=== PATIENT | female | born 1935 | race Caucasian/White ===

== ENCOUNTER 2020-12-18 19:26 | Inpatient (IN) ==
[2020-12-18 20:57] LABS: INR 1.37 (0.86-1.15)
[2020-12-18 20:59] LABS: ALT 21 U/L (7-52); AST 24 U/L (13-39); Albumin 3.8 g/dL (3.2-5.2); Albumin/Globulin Ratio 1.1 (1-3); Alkaline Phosphatase 75 U/L (35-149); Anion Gap 6 mmol/L (2-11); Blood Urea Nitrogen 17 mg/dL (6-24); CO2 Carbon Dioxide 25 mmol/L (22-32); Calcium 9.6 mg/dL (8.6-10.3); Chloride 98 mmol/L (101-111); EGFR African American 101.5 (>60); EGFR Non-African American 83.9 (>60); Globulin 3.6 g/dL (2-4); Glucose 101 mg/dL (70-100); Potassium 3.9 mmol/L (3.5-5.0); Sodium 129 mmol/L (135-145); Total Protein 7.4 g/dL (6.4-8.9)
[2020-12-18 21:03] LABS: Troponin I 0.16 ng/mL (<0.03)
[2020-12-18 21:12] LABS: Hematocrit 37 % (35-47); Hemoglobin 12.3 g/dL (12.0-16.0); Mean Corpuscular HGB Conc 33 g/dL (31-36); Mean Corpuscular Hemoglobin 30 pg (27-31); Mean Corpuscular Volume 91 fL (80-97); Red Blood Count 4.05 10^6 /uL (3.70-4.87); Red Cell Distribution Width 13 % (10-15); White Blood Count 10.9 10^3/uL (3.5-10.8)
[2020-12-18] MEDS ORDERED: Diltiazem IV push/loading dose 5 MG/ML 5 ML vial (25 mg) IV SLOW PU ONE ×2 (21:39→23:08)
[2020-12-18 21:53] LABS: ABS Basophils 0.1 10^3/ul (0-0.2); ABS Eosinophils 0.2 10^3/ul (0-0.6); ABS Lymphocytes 0.6 10^3/ul (1.0-4.8); ABS Monocytes 1.1 10^3/ul (0-0.8); ABS Neutrophils 8.9 10^3/ul (1.5-7.7); Eosinophil % 1.9 %; Lymphocyte % 5.3 %; Mean Platelet Volume 9.1 fL (7.4-10.4); Nucleated Red Blood Cells % 0.1; Platelet Count 344 10^3/uL (150-450)
[2020-12-18 22:03] LABS: Urine Appearance Clear; Urine Bilirubin Negative (Negative); Urine Blood 2+ (Negative); Urine Color Straw; Urine Glucose Negative (Negative); Urine Ketones Negative (Negative); Urine Nitrite Negative (Negative); Urine Protein Negative (Negative); Urine Specific Gravity 1.006 (1.002-1.030); Urine Urobilinogen Negative (Negative)
[2020-12-18 22:26] LABS: Urine Bacteria Absent (Absent); Urine Red Blood Cell Trace(0-2/hpf) (Absent); Urine White Blood Cell 1+(6-10/hpf) (Absent)
[2020-12-18] MEDS ORDERED: Iohexol 350 (CONTRAST) 500 ML MDV IV ONE (22:44)
[2020-12-18 23:42] LABS: Troponin I 0.13 ng/mL (<0.03)
[2020-12-18] MEDS ORDERED: Diltiazem (ADVAN VIAL) 100 MG/100 ML ADDV.BAG IV SCH (23:45)
[2020-12-19 02:57] LABS: Troponin I 0.15 ng/mL (<0.03)
[2020-12-19] MEDS ORDERED: Heparin 5000 UNITS/ML 1 mL VIAL IV SCH (03:00)
[2020-12-19] MEDS ORDERED: Heparin DRIP 25,000 UNITS BAG 25,000 UNITS/500 ML BAG IV SCH (03:00)
[2020-12-19] MEDS ORDERED: Nitroglycerin 0.6 mg TAB SL PRN (03:02)
[2020-12-19 05:14] LABS: C Reactive Protein 86.68 mg/L (<8.01)
[2020-12-19 05:15] LABS: ABS Eosinophils 0.3 10^3/ul (0-0.6); ABS Lymphocytes 0.7 10^3/ul (1.0-4.8); ABS Monocytes 0.9 10^3/ul (0-0.8); ABS Neutrophils 6.6 10^3/ul (1.5-7.7); Eosinophil % 3.1 %; Hematocrit 32 % (35-47); Hemoglobin 11.1 g/dL (12.0-16.0); Lymphocyte % 8.2 %; Mean Corpuscular HGB Conc 35 g/dL (31-36); Mean Corpuscular Hemoglobin 31 pg (27-31); Mean Corpuscular Volume 89 fL (80-97); Mean Platelet Volume 8.7 fL (7.4-10.4); Platelet Count 295 10^3/uL (150-450); Red Blood Count 3.61 10^6 /uL (3.70-4.87); Red Cell Distribution Width 14 % (10-15); White Blood Count 8.5 10^3/uL (3.5-10.8)
[2020-12-19 05:29] LABS: Albumin 3.3 g/dL (3.2-5.2); EGFR Non-African American 91.7 (>60); Globulin 3.3 g/dL (2-4); HDL Cholesterol 64.1 mg/dL; Potassium 3.7 mmol/L (3.5-5.0); Total Bilirubin 0.4 mg/dL (0.2-1.0); Total Protein 6.6 g/dL (6.4-8.9)
[2020-12-19 05:30] LABS: Troponin I 0.15 ng/mL (<0.03)
[2020-12-19] MEDS ORDERED: Diltiazem IV push/loading dose 5 MG/ML 5 ML vial (25 mg) IV SLOW PU ONE ×3 (06:04→06:39)
[2020-12-19] MEDS ORDERED: Diltiazem IV push/loading dose 5 MG/ML 5 ML vial (25 mg) ONE (06:04)
[2020-12-19] MEDS ORDERED: Diltiazem (ADVAN VIAL) 100 MG/100 ML ADDV.BAG IV SCH (07:00)
[2020-12-19] MEDS: KCL 20 MEQ/100 ML IVPREMIX 20 MEQ/100 ML BAG IV SCH ×2 (07:03→09:57)
[2020-12-19] MEDS ORDERED: Digoxin IV 0.5 MG/2 ML AMP (0.25 MG/ML) IV SLOW PU ONE ×2 (07:20→13:00)
[2020-12-19] MEDS ORDERED: Ondansetron 4 mg VIAL 2 MG/ML 2 ml VIAL IV PRN (07:51)
[2020-12-19] MEDS ORDERED: NS 0.9% 500 ml BAG 500 ML IV ONE (08:46)
[2020-12-19] MEDS ORDERED: Lactated Ringers 1000 ml BAG 1,000 ML IV SCH (10:00)
[2020-12-19 12:39] LABS: Erythrocyte Sed Rate > 120 mm/Hr (0-29)
[2020-12-19] MEDS ORDERED: Perflutren Lipid Microsphere 3 ML VIAL ONE (14:00)
[2020-12-19] MEDS ORDERED: Amiodarone 400 mg TAB PO SCH (21:00)
[2020-12-20 06:30] LABS: ABS Eosinophils 0.3 10^3/ul (0-0.6); ABS Lymphocytes 0.6 10^3/ul (1.0-4.8); ABS Monocytes 0.9 10^3/ul (0-0.8); ABS Neutrophils 6.1 10^3/ul (1.5-7.7); Eosinophil % 4.3 %; Hematocrit 33 % (35-47); Hemoglobin 10.8 g/dL (12.0-16.0); Lymphocyte % 8.1 %; Mean Corpuscular HGB Conc 33 g/dL (31-36); Mean Corpuscular Hemoglobin 30 pg (27-31); Mean Corpuscular Volume 91 fL (80-97); Mean Platelet Volume 8.8 fL (7.4-10.4); Platelet Count 299 10^3/uL (150-450); Red Blood Count 3.58 10^6 /uL (3.70-4.87); Red Cell Distribution Width 13 % (10-15)
[2020-12-20 06:33] LABS: Calcium 8.7 mg/dL (8.6-10.3); Potassium 4.1 mmol/L (3.5-5.0)
[2020-12-20 06:39] LABS: EGFR African American 108.9 (>60); Phosphorus 2.5 mg/dL (2.5-5.0)
[2020-12-20] MEDS ORDERED: Regadenoson 0.4 MG/5 ML SYRINGE ONE (09:24)
[2020-12-20] MEDS ORDERED: Aminophylline 25 MG/ML VIAL ONE (09:24)
[2020-12-20] MEDS: Metoprolol Tartrate 5 mg VIAL 5 ml VIAL (1 mg/ml) IV SCH ×2 (11:30→11:38)
[2020-12-20] MEDS ORDERED: Digoxin IV 0.5 MG/2 ML AMP (0.25 MG/ML) IV SLOW PU ONE (11:42)
[2020-12-20 14:59] LABS: Digoxin 1.3 ng/ml (0.8-2.0)
[2020-12-21 06:28] LABS: ABS Eosinophils 0.4 10^3/ul (0-0.6); ABS Lymphocytes 0.7 10^3/ul (1.0-4.8); ABS Monocytes 0.9 10^3/ul (0-0.8); Hematocrit 33 % (35-47); Hemoglobin 11.2 g/dL (12.0-16.0); Lymphocyte % 8.2 %; Mean Corpuscular HGB Conc 34 g/dL (31-36); Mean Corpuscular Hemoglobin 31 pg (27-31); Mean Corpuscular Volume 91 fL (80-97); Mean Platelet Volume 8.7 fL (7.4-10.4); Platelet Count 313 10^3/uL (150-450); Red Cell Distribution Width 14 % (10-15); White Blood Count 9.1 10^3/uL (3.5-10.8)
[2020-12-21 06:51] LABS: EGFR Non-African American 91.7 (>60); Total Protein 5.7 g/dL (6.4-8.9)
[2020-12-21 14:00] LABS: Body Fluid Appearance Cloudy; Body Fluid Color Yellow; Body Fluid Source Pleural Fluid
[2020-12-21 14:16] LABS: Body Fluid WBC 988 /mcL
[2020-12-21 14:57] LABS: Body Fluid Mono 7 %; Body Fluid Total Cells Counted 200
[2020-12-21] MEDS ORDERED: Polyethylene Glycol 3350 17 GM PACKET PO PRN (17:28)
[2020-12-21] MEDS ORDERED: Magnesium Hydroxide LIQ 30 ML UDC PO PRN (17:28)
[2020-12-21] MEDS: Senna TAB 8.6 mg TAB PO PRN (20:14)
[2020-12-22 14:23] LABS: Lactate Dehydrogenase, BF 178 U/L
[2020-12-23 06:16] LABS: ABS Basophils 0.1 10^3/ul (0-0.2); ABS Eosinophils 0.5 10^3/ul (0-0.6); ABS Lymphocytes 0.6 10^3/ul (1.0-4.8); ABS Monocytes 0.8 10^3/ul (0-0.8); ABS Neutrophils 5.5 10^3/ul (1.5-7.7); Hematocrit 32 % (35-47); Hemoglobin 11.3 g/dL (12.0-16.0); Lymphocyte % 8.4 %; Mean Corpuscular HGB Conc 35 g/dL (31-36); Mean Corpuscular Hemoglobin 31 pg (27-31); Mean Corpuscular Volume 89 fL (80-97); Mean Platelet Volume 8.7 fL (7.4-10.4); Platelet Count 345 10^3/uL (150-450); Red Blood Count 3.61 10^6 /uL (3.70-4.87); Red Cell Distribution Width 13 % (10-15); White Blood Count 7.5 10^3/uL (3.5-10.8)
[2020-12-23 06:35] LABS: Calcium 8.9 mg/dL (8.6-10.3); EGFR African American 103.2 (>60); EGFR Non-African American 85.3 (>60); Potassium 4.2 mmol/L (3.5-5.0)
[2020-12-23 10:59] LABS: Fluid Type, Protein, Total PLEURAL; Total Protein, BF 3.7 g/dL
[2020-12-24 11:47] LABS: C Reactive Protein 40.13 mg/L (<8.01); Rheumatoid Factor < 10 IU/mL (<15)
[2020-12-25 05:41] LABS: ABS Basophils 0.1 10^3/ul (0-0.2); ABS Eosinophils 0.7 10^3/ul (0-0.6); ABS Monocytes 0.9 10^3/ul (0-0.8); ABS Neutrophils 4.6 10^3/ul (1.5-7.7); Eosinophil % 9.9 %; Hematocrit 31 % (35-47); Hemoglobin 10.7 g/dL (12.0-16.0); Lymphocyte % 14.2 %; Mean Corpuscular HGB Conc 34 g/dL (31-36); Mean Corpuscular Hemoglobin 31 pg (27-31); Mean Corpuscular Volume 90 fL (80-97); Mean Platelet Volume 8.5 fL (7.4-10.4); Platelet Count 350 10^3/uL (150-450); Red Cell Distribution Width 14 % (10-15); White Blood Count 7.4 10^3/uL (3.5-10.8)
[2020-12-25 06:06] LABS: EGFR African American 86.4 (>60); EGFR Non-African American 71.4 (>60); Potassium 4.3 mmol/L (3.5-5.0)
[2020-12-25] MEDS: Senna TAB 8.6 mg TAB PO PRN (20:19)
[2020-12-26 08:15] VITALS: BP 118/59
[2020-12-27 18:24] LABS: JO-1 Antibody <0.2 U; RNP Antibody, IgG 0.4 U; SS-A/Ro Antibody <0.2 U; SS-B/La Antibody <0.2 U; Sm (Smith) IgG Antibody <0.2 U
[2020-12-28 10:23] LABS: Cytomegalovirus IgG Antibody Negative (Negative)
== END 2020-12-26 14:34 | DRG 187 ==
LOC: ED 19:26 → SUATTDRO 12-19 02:33 → MEDTELE 12-19 02:33 → ICU 12-19 04:20 → MEDTELE 12-19 20:44
PROVIDERS: ADMIT Internal Medicine; ATTEND Internal Medicine